=== PATIENT | female | born 1955 ===

== ENCOUNTER 2020-11-02 07:08 | Day surgery (SDC) | payer OTHER ==
[~2020-11-02 07:08] MED LIST: CARVEDILOL3.125 MG PO; MYFORTIC360 MG PO; PEPCID; PROGRAF1 MG; RAYOS5 MG PO; RESTORIL PO; SEPTRA PO
== END 2020-11-02 22:20 | disposition home or self-care (01) ==
LOC: CIR.AMB 07:08 → EDBD 07:30 → CIR.AMB 07:30
PROVIDERS: ATTEND Urology
DX: T83.89XA Other specified complication of genitourinary prosthetic devices, implants and grafts, initial encounter (principal); Z20.822 Contact with and (suspected) exposure to COVID-19